=== PATIENT | male | born 1975 | race Caucasian/White ===

== ENCOUNTER 2017-11-03 10:43 | Emergency (ER) | payer BC | END 2017-11-03 11:07 | disposition left against medical advice (07) | LOC: ERS 10:43 | DX: Z53.21 Procedure and treatment not carried out due to patient leaving prior to being seen by health care provider (principal) ==

== ENCOUNTER 2019-05-19 07:00 | Inpatient (IN) | payer BC ==
[2019-05-19] MEDS ORDERED: Aspirin Chewable 81 MG TAB ONE (08:19)
--- NOTE | 2019-05-19 08:19 | RAD ---
XR Chest 1 View Portable HISTORY: Chest pain COMPARISON: None FINDINGS: The heart size is normal. The lungs are well expanded without focal areas of consolidation, pneumothorax or pleural effusions. IMPRESSION: No radiographic evidence of acute cardiopulmonary process.
[2019-05-19 08:39] LABS: #Eosinphils 0.1 thou/uL (0.0-0.7); #Lymphocytes 2.2 thou/uL (1.20-3.40); #Monocytes 0.9 thou/uL (0.11-0.59); %Basophils 0.4 % (0.0-1.0); %Eosinophils 1.2 % (0.0-10.0); %Lymphocytes 19.9 % (21.0-51.0); %Monocytes 7.7 % (0.0-10.0); %Neutrophils 70.8 % (42.0-75.0); Hemoglobin 15.1 g/dL (14.0-18.0); Mean Corpuscular HGB CONC 33.9 g/dL (32.0-36.0); Mean Corpuscular Hemoglobin 32.4 pg (27.0-31.0); Mean Corpuscular Volume 95.4 fL (78.0-98.0); Mean Platelet Volume 9.2 fL (7.4-10.4); Platelet Count 241 thou/uL (130-400); RBC Distribution Width 11.9 % (11.5-14.5); Red Blood Cell (RBC) Count 4.65 mill/uL (4.70-6.10); White Blood Cell (WBC) Count 11.3 thou/uL (4.8-10.8)
[2019-05-19 09:01] LABS: ALT (SGPT) 99 U/L (8-55); AST (SGOT) 77 U/L (5-34); Albumin 3.9 g/dL (3.5-5.0); Alkaline Phosphatase 70 U/L (40-110); Anion Gap 13 mmol/L (10-20); BUN (Urea Nitrogen) 11 mg/dL (8.9-20.6); Bilirubin, Total 0.7 mg/dL (0.2-1.2); CK (CPK) 606 U/L (30-200); Calc. Creatinine Clearance 0 mL/min (70-130); Carbon Dioxide 27 mmol/L (22-29); Chloride 106 mmol/L (98-107); Estimated GFR-MDRD 83; Globulin 3.1 g/dL (2.4-3.5); Glucose 121 mg/dL (70-105); Lipase 45 U/L (8-78); Potassium 4.1 mmol/L (3.5-5.1); Sodium 142 mmol/L (136-145)
[2019-05-19 09:34] LABS: CKMB 60.1 ng/mL (0-6.6)
[2019-05-19] MEDS ORDERED: Heparin 25,000 units/D5W 500 ML ONE (10:32)
[2019-05-19] MEDS ORDERED: Nitroglycerin 0.4 MG TAB (25 Tab Bottle) PO PRN (10:46)
[2019-05-19 10:57] LABS: PTT 28.4 SEC (22.9-36.1); Prothrombin Time 13.5 SEC (12.0-14.7)
[2019-05-19] MEDS ORDERED: Sodium Chloride 0.9% 1,000 ML IV SCH (11:00)
[2019-05-19] MEDS ORDERED: Heparin 25,000 units/D5W 500 ML IVPB SCH (11:15)
[2019-05-19] MEDS ORDERED: Heparin 10,000 UNITS/ 10 ML VIAL SLOW IVP SCH (11:15)
[2019-05-19] MEDS ORDERED: Heparin 1,000 UNITS/ML VIAL ONE ×2 (11:23→11:24)
[2019-05-19 11:48] LABS: Platelet Count 222 thou/uL (130-400)
[2019-05-19 11:55] LABS: Troponin I 21.041 ng/mL (< 0.028)
[2019-05-19] MEDS ORDERED: Heparin 10,000 UNITS/1 ML VIAL ONE (12:37)
[2019-05-19] MEDS ORDERED: Verapamil 5 MG/2 ML VIAL ONE (12:37)
[2019-05-19] MEDS ORDERED: Nitroglycerin 100MG/250ML BOT 250 ML ONE (12:38)
[2019-05-19] MEDS ORDERED: Heparin (Artline) 1,000 ML ONE (12:38)
[2019-05-19] MEDS ORDERED: Midazolam HCl 2 mg/2 ml Vial ONE (13:06)
[2019-05-19] MEDS ORDERED: Fentanyl 100 MCG/2 ML VIAL ONE (13:06)
--- NOTE | 2019-05-19 13:11 | CON ---
DATE OF CONSULTATION: 05/19/2019 REASON FOR CONSULTATION: Non-STEMI. HISTORY OF PRESENT ILLNESS: Mr. Bruce is a very pleasant 43-year-old white gentleman, who comes to the hospital for chest pain. He woke up this morning and noticed chest tightness, felt like somebody was squeezing his chest. He decided to come in for evaluation. Initial troponin was at 16, up to 22. He is chest pain-free at this time. Pain did not change with positioning. It did last for about an hour. He was diagnosed with strep throat about a week ago. He also had diarrhea. He has been on medicines for this. PAST MEDICAL HISTORY: Hyperlipidemia. OUTPATIENT MEDICATIONS: He is on atorvastatin at 40 mg at bedtime. FAMILY HISTORY: No early coronary artery disease in family members, only malignancy. . SOCIAL HISTORY: No drugs. Former tobacco user. Drinsk 3-4 beers daily, more when out with friends. ALLERGIES: NO KNOWN DRUG ALLERGIES. SURGERIES: Tonsillectomy as a child, several broken bones and surgeries for these. REVIEW OF SYSTEMS: A 12-point review of systems was done and was all negative unless stated in the history of present illness. PHYSICAL EXAMINATION: VITAL SIGNS: Temperature 97.2, pulse 88, respiratory rate 16, sat 98% on 2 L nasal cannula, blood pressure 128/64. GENERAL: Awake, alert, oriented x3. In no distress. HEENT: Normocephalic, atraumatic. NECK: Supple. LUNGS: Clear. CARDIOVASCULAR: S1 and S2. No S3 or S4. No murmurs. ABDOMEN: Soft. Positive bowel sounds. EXTREMITIES: No edema. SKIN: Warm and dry. LABORATORY DATA: Laboratory work was reviewed. CBC with a white count of 11, hemoglobin of 15, hematocrit 44, and platelet count 241. Coags were normal. Chemistries were unremarkable. AST and ALT were high. CK was 606, troponin was 16 up to 21, CK-MB of 60, albumin of 3.9, lipase of 45. EKG was reviewed. ASSESSMENT/PLAN: 1. Vhz-[id number]-yeplnosic myocardial infarction. 2. Chest pain. 3. Recent strep throat infection. PLAN: 1. We will plan on further risk stratification with a heart catheterization. High likelihood that this may be just a myopericarditis from a strep throat infection. We will rule out coronary artery disease first. We spoke at length about risks and benefits of the procedure. Risks included, but not limited to stroke, [place], , bleeding, need for blood transfusion, limb loss, organ loss. The patient understands, verbalized understanding of this. Agrees to proceed. Agrees to moderate sedation as well given risks and benefits. Drug-eluting stents if needed, radial access. 2. Further recommendations per results of coronary angiogram. 3. Echocardiogram to be done. Job ID: [id number] MTDD
[2019-05-19] MEDS ORDERED: Sodium Chloride 0.9% 200 ML IV PRN (13:39)
[2019-05-19] MEDS ORDERED: Acetaminophen/Codeine 30-300mg Tablet PO PRN (13:39)
[2019-05-19] MEDS ORDERED: Sodium Chloride 0.9% 500 ML IV SCH (13:45)
--- NOTE | 2019-05-19 13:49 | HP ---
CHIEF COMPLAINT: Chest pain. HISTORY OF PRESENT ILLNESS: The patient is a very pleasant 43-year-old male with history of hyperlipidemia and GERD, who presents to the hospital with complaints of some chest tightness that started this morning. The patient has a history of strep throat in the past. He was recently diagnosed with strep throat on Thursday. He was taking Augmentin. The patient initially stated that he actually improved, however, started having some chest tightness in a bandlike shape across his chest this morning, so he came into the ER for further evaluation. The patient in the ER was found to have a significantly elevated troponin of 16, and for this reason, he was admitted into the hospital. The patient denies any fevers or chills, any nausea, vomiting, or diarrhea. PAST MEDICAL HISTORY: GERD, obesity, and hyperlipidemia. FAMILY HISTORY: History of hyperlipidemia. No sudden cardiac . REVIEW OF SYSTEMS: All negative except for the ones mentioned above in the HPI. SOCIAL HISTORY: The patient does drink 2 to 3 beers a day. Denies any drug use or smoking history. Is a full code. Lives with his . PAST SURGICAL HISTORY: He has had his adenoids removed. PHYSICAL EXAMINATION: VITAL SIGNS: Temperature of 98.8, blood pressure of 113/60, and heart rate of 80. GENERAL: He is awake, alert, and oriented x3. Does not appear in distress. HEENT: He does have significant inflamed tonsils and also he has palpable cervical lymph nodes to his right side. CV: S1, S2 present. No murmurs, rubs, or gallops. LUNGS: Clear to auscultation. No rhonchi or wheezes noted. ABDOMEN: Soft and nontender. Bowel sounds are present x2. EXTREMITIES: No edema. Pedal pulses are present x2. NEUROVASCULAR: No focal deficits noted. LABORATORY RESULTS: WBCs 11.3, hemoglobin of 15.1, hematocrit of 44.4, and platelets of 241. His chemistry; sodium of 142, potassium of 4.1, BUN of 11, and creatinine of 0.99. His troponin is 16, second one was 21 with a CK of 60. His lipase was 45. His chest x-ray that was done, did not show any acute abnormalities. ASSESSMENT AND PLAN: The patient is a very pleasant 43-year-old male who presents to the hospital with complaints of chest tightness. 1. [id number] elevation myocardial infarction. His EKG had no significant changes. Currently, he is chest pain-free; however, his troponin is significantly elevated. Cardiology has been called. The patient will go to for cardiac catheterization. He has already been given aspirin. We will continue his statin. We will also start him on a heparin drip for now. Continue to monitor. 2. Strep. We will continue his Augmentin. He took this a.m. dose. We will continue his p.m. dose. 3. Hyperlipidemia. We will check a lipid panel in the morning and also, we will continue his atorvastatin. 4. Alcohol use. He takes 2 or 3 drinks a day. We will monitor him on OSITO protocol. 5. Deep venous thrombosis prophylaxis. The patient is already on heparin drip. We will continue to monitor. Job ID: [id number]
[2019-05-19] MEDS ORDERED: Iopamidol 370 76% 100 ML VIAL ONE (15:11)
[2019-05-19 15:39] VITALS: BMI 32.8
[2019-05-19] MEDS: Acetaminophen/Codeine 30-300mg Tablet PO PRN ×2 (17:37→23:06)
[2019-05-19 17:41] LABS: Critical Call Chem Troponin I RESULT DECREASING; Troponin I 19.674 ng/mL (< 0.028)
[2019-05-19] MEDS: Amoxicillin/Potassium Clav 875 MG TAB PO SCH (20:22)
[2019-05-19] MEDS: Pantoprazole 40 MG VIAL IVP SCH (20:23)
[2019-05-19] MEDS ORDERED: Atorvastatin Calcium 40 MG TAB PO SCH (21:00)
[2019-05-20 05:36] LABS: Cardiac Risk 5.5 (Less than 4.5)
[2019-05-20] MEDS ORDERED: Folic Acid 1 MG TAB PO SCH (09:00)
[2019-05-20] MEDS ORDERED: Thiamine 100 MG TAB PO SCH (09:00)
[2019-05-20] MEDS ORDERED: Enoxaparin Sodium 40 MG/0.4 ML SYRINGE SC SCH (09:00)
[2019-05-20] MEDS ORDERED: Famotidine 20 MG TAB PO SCH (09:00)
[2019-05-20] MEDS ORDERED: FLU VACC QS2019-20(6MOS UP)/PF 60 MCG/0.5 ML SYRINGE IM ONE (09:00)
[2019-05-20] MEDS: Pantoprazole 40 MG VIAL IVP SCH (09:11)
[2019-05-20] MEDS: Amoxicillin/Potassium Clav 875 MG TAB PO SCH (09:12)
--- NOTE | 2019-05-20 15:57 | PDOC.CPN ---
- Subjective Date: 05/20/19 Time: 13:00 Interval history: He is doing well. No more chest pain. - Review of Systems General: denies: fever/chills, weight/appetite/sleep changes, night sweats, fatigue Respiratory: denies: cough, congestion, shortness of breath, exercise intolerance Cardiovascular: denies: chest pain, palpitation, edema, paroxysmal nocturnal dyspnea, orthopnea Gastrointestinal: denies: nausea, vomiting, diarrhea, constipation, abd pain, GI bleeding Musculoskeletal: denies: pain, tenderness, stiffness, swelling, arthritis/ arthralgias Neurological: denies: numbness, syncope, seizure, weakness - Objective Allergies/Adverse Reactions: Allergies Allergy/AdvReac Type Severity Reaction Status Date / Time No Known Allergies Allergy Verified 05/19/19 15:37 Visit Medications: Current Medications Acetaminophen/Codeine Phosphate (Tylenol #3) 1 tab PO Q4H PRN PRN Reason: Mild Pain (1-3) Last Admin: 05/19/19 23:06 Dose: 1 tab Acetaminophen/Codeine Phosphate (Tylenol #3) 2 tab PO Q4H PRN PRN Reason: Moderate Pain (4-6) Last Admin: 05/20/19 06:42 Dose: 2 tab Amoxicillin/Clavulanate Potassium (Augmentin) 875 mg PO Q12HR [facility] Last Admin: 05/20/19 09:12 Dose: 875 mg Atorvastatin Calcium (Lipitor) 40 mg PO HS [facility] Last Admin: 05/19/19 20:22 Dose: 40 mg Enoxaparin Sodium (Lovenox) 40 mg SC 0900 [facility] Last Admin: 05/20/19 09:11 Dose: 40 mg Famotidine (Pepcid) 20 mg PO BID [facility] Last Admin: 05/20/19 09:29 Dose: Not Given Folic Acid (Folvite) 1 mg PO DAILY [facility] Last Admin: 05/20/19 09:12 Dose: 1 mg Nitroglycerin (Nitrostat) 0.4 mg PO Q5MIN PRN PRN Reason: Chest Pain Thiamine HCl (Thiamine) 100 mg PO DAILY [facility] Last Admin: 05/20/19 09:12 Dose: 100 mg Vital Signs & Weight: Vital Signs Temp Pulse Resp BP Pulse Ox 05/20/19 08:00 97 05/20/19 04:00 98.4 F 80 18 132/76 97 Weight 242 lb - Physical Exam General: alert & oriented x3 HEENT: mucus membranes moist Neck: supple neck Cardiac: no murmur Lungs: normal breath sounds Neuro: grossly intact Abdomen: active bowel sounds Extremities: no edema Skin: clear Musculoskeletal: no pain - Labs Result Diagrams: 05/19/19 11:30 05/19/19 08:28 Troponin/CKMB CK-MB (CK-2) 60.1 ng/mL (0-6.6) H* 05/19/19 08:28 Troponin I 19.674 ng/mL (< 0.028) H* 05/19/19 16:55 - Telemetry Sinus rhythms and dysrhythmias: sinus rhythm - Assessment/Plan Assessment/Plan: 1. Demand ischemia 2. Strep throat PLAN: - May discharge home - Follow up in 2 months with echo.
[2019-05-20 16:21] VITALS: BP 132/87; TEMP 97.9
--- NOTE | 2019-05-20 19:53 | DIS ---
DATE OF ADMISSION: 05/19/2019 DATE OF DISCHARGE: 05/20/2019 DISCHARGE DIAGNOSES: 1. Jxk-[id number] myocardial infarction. 2. Chest pain. 3. Strep infection, currently on treatment. 4. Hyperlipidemia and elevated LFTs. HOSPITAL COURSE: The patient is a 43-year-old male, recently diagnosed with strep on Thursday, was on medication when he started having some chest tightness x1 in the morning. At this time, he came into the hospital. He was found to have a significantly elevated troponin of 16, went up to 21. At this time, he was put on blood thinners. He was also taken to the lab[facility], which indicated normal coronaries. Possibly, his elevated troponins and NSTEMI could be secondary to a myocarditis; however, the echocardiogram that was done indicated an EF of 50% to 55%, with just mild mitral and tricuspid regurgitation. The diastolic function was normal. The patient was seen by Cardiology. He currently has no more chest pain. He will be discharged home. He will follow up with his primary care doctor as needed. I have asked him to cut back on his alcohol use; diet, exercise, and weight loss given his mildly elevated LFTs. He is currently on atorvastatin and this needs to be monitored as an outpatient also. He is on one p.o. b.i.d., atorvastatin 20 mg daily, and Pepcid 40 mg at bedtime. I have also educated him about spicy foods, chocolates, and coffee since he has had significant amount of reflux and I have asked him to follow up with PCP, so he might require an EGD given this recurrent GERD like symptoms. The patient understands. He will follow up with his primary. PHYSICAL EXAMINATION: VITAL SIGNS: At this time, temperature 98.4, pulse 88, respirations 18, 97% on room air, blood pressure 132/76. GENERAL: He is awake, alert, and oriented x3. Does not appear in distress. CV: S1 and S2 present. No murmurs, rubs, or gallops. ABDOMEN: Soft and nontender. Bowel sounds are present x2. DISCHARGE INSTRUCTIONS: Again, he will be discharged home and follow up with his primary. Job ID: [id number]
== END 2019-05-20 16:50 | disposition home or self-care (01) | DRG 282 ==
LOC: ERS 07:00 → ERHOLD 10:13 → 2NO 15:24
PROVIDERS: ADMIT Internal Medicine; ATTEND Internal Medicine
PROC: 4A023N7 Measurement of Cardiac Sampling and Pressure, Left Heart, Percutaneous Approach (ICD-10-PCS; principal; 2019-05-19)
PROC: B2111ZZ Fluoroscopy of Multiple Coronary Arteries using Low Osmolar Contrast (ICD-10-PCS; 2019-05-19)
PROC: B2151ZZ Fluoroscopy of Left Heart using Low Osmolar Contrast (ICD-10-PCS; 2019-05-19)
PROC: 4A033BC Measurement of Arterial Pressure, Coronary, Percutaneous Approach (ICD-10-PCS; 2019-05-19)
PROC: 3E02340 Introduction of Influenza Vaccine into Muscle, Percutaneous Approach (ICD-10-PCS; 2019-05-20)
DX: I51.4 Myocarditis, unspecified (principal); I21.A1 Myocardial infarction type 2; Z23 Encounter for immunization; E78.5 Hyperlipidemia, unspecified; E78.00 Pure hypercholesterolemia, unspecified; J02.0 Streptococcal pharyngitis; R19.7 Diarrhea, unspecified; K21.9 Gastro-esophageal reflux disease without esophagitis; E66.9 Obesity, unspecified; R79.89 Other specified abnormal findings of blood chemistry; I07.1 Rheumatic tricuspid insufficiency; Z79.899 Other long term (current) drug therapy; Z87.891 Personal history of nicotine dependence; Z68.32 Body mass index [BMI] 32.0-32.9, adult
CPT/HCPCS: 36415; 71045; 80053; 80061; 82550; 82553; 83690; 84484; 85025; 85610; 85730; 93005; 93306; 93458; 94760; 96365; 96366; 96374; 99152; C1769; C9113; J1644; J1650; J2250; J3010; Q9967

== ENCOUNTER 2019-08-15 06:24 | Emergency (ER) | payer BC ==
[2019-08-15] MEDS ORDERED: Bicillin LA 1.2 MILLION UNITS/2 ML SYRINGE ONE (07:36)
== END 2019-08-15 08:03 | disposition home or self-care (01) ==
LOC: ERS 06:24
DX: J02.0 Streptococcal pharyngitis (principal); E78.5 Hyperlipidemia, unspecified; E78.00 Pure hypercholesterolemia, unspecified; Z87.891 Personal history of nicotine dependence; Z79.899 Other long term (current) drug therapy
CPT/HCPCS: 96372; 99282; J0561